=== PATIENT | female | born 1980 | race Caucasian/White ===

== ENCOUNTER 2016-09-10 05:49 | Emergency (ER) | payer MEDICAID, OTHER ==
[~2016-09-10] VITALS: Ht 149.9 cm; Wt 90.9 kg
[~2016-09-10 05:49] MED LIST: CIPR500T4 PO; METR500T PO; PANT40TA3 PO; TRAM50TA2 PO
[2016-09-10 05:52] VITALS: Ht 149.9 cm; Wt 90.9 kg
--- NOTE | 2016-09-10 06:28 | ERD ---
ER Documentation Chief Complaint Date/Time DATE: 09/10/16 TIME: 06:26 Chief Complaint woke up w/sharp mid ap this morning. +n/v and sweats took pepcid (IRVIN ROSENBERG) HPI 36-year-old female presented emergency department for mid abdominal pain that woke her up this morning at around 3 AM. Pain was described as sharp nonradiating. Reports nonbilious and none bloody vomiting 1 today. Stated that she took Pepcid prior to arrival here in the emergency department. Denies headache, loss of consciousness, dizziness, blurry vision, changes in vision, photophobia, facial pain, ear pain, throat pain, difficulty swallowing, neck pain, shoulder pain, chest pain, cough, hemoptysis, back pain, loss of appetite, hematochezia, diarrhea, constipation, urinary symptoms, , the possibility of being , bladder and bowel incontinences, extremity weakness, extremity tenderness, numbness or tingling sensation, difficulty walking, recent travel, recent exposure to illness, recent antibiotic use in the last 3 months, fever, chills. LMP: August 19, 2016. A0. Past medical history of gallstones. Surgical history of cholecystectomy. Family history: Denies family history of cardiac before the age of 50, stroke. Medications: Denies prescription medication. Social: Works as a salesperson. Denies smoking, use of alcohol, use of illegal drugs. (IRVIN ROSENBERG) ROS All systems reviewed and are negative except as per history of present illness. (IRVIN ROSENBERG) Medications Home Meds Active Scripts Ondansetron (Ondansetron Odt) 4 Mg Tab.rapdis, 4 MG PO Q8 Y for NAUSEA AND/OR VOMITING, #20 TAB Prov:IRVIN ROSENBERG 09/10/16 Famotidine* (Pepcid*) 20 Mg Tablet, 40 MG PO DAILY for 30 Days, #30 TAB Prov:IRVIN ROSENBERG 09/10/16 Pantoprazole* (Protonix*) 40 Mg Tablet.dr, 40 MG PO DAILY for 30 Days, TAB Prov:CHRISTIE LAU MD 10/19/14 Tramadol HCl (Tramadol HCl) 50 Mg Tab, 50 MG PO Q6H Y for PAIN for 10 Days, TAB Prov:CHRISTIE LAU MD 10/19/14 Metronidazole* (Flagyl*) 500 Mg Tablet, 500 MG PO Q8 for 10 Days, TAB Prov:CHRISTIE LAU MD 10/19/14 Ciprofloxacin Hcl* (Ciprofloxacin Hcl*) 500 Mg Tablet, 500 MG PO BID for 10 Days , TAB Prov:CHRISTIE LAU MD 10/19/14 Allergies Allergies: Coded Allergies: piperacillin (Verified Allergy, Intermediate, URTICARIA, 10/16/14) tazobactam (Verified Allergy, Intermediate, URTICARIA, 10/16/14) PMhx/Soc History of Surgery: Yes (ERCP WITH SENT 2012, GALLBLADER REMOVAL 06/2012, ERCP , ) Anesthesia Reaction: No Hx Neurological Disorder: No Hx Respiratory Disorders: No Hx Cardiac Disorders: Yes (IRREGULAR) Hx Psychiatric Problems: No Hx Miscellaneous Medical Probl: No Hx Alcohol Use: No Hx Substance Use: No Hx Tobacco Use: No Smoking Status: Never smoker (IRVIN ROSENBERG) Physical Exam Vitals Vital Signs Date Time Temp Pulse Resp B/P Pulse Ox O2 Delivery O2 Flow Rate FiO2 09/10/16 05:52 97.8 88 18 143/83 98 (KAIDEN MORGAN MD) Physical Exam CONSTITUTIONAL: Well-appearing; well-nourished; in no apparent distress. HEAD: Normocephalic; atraumatic. EYES: Conjunctiva clear, sclera non-icteric, EOM intact. PERRL Ears: Hearing intact. EACs clear, TMs non-bulging, non-inflamed, translucent & mobile, ossicles normal appearance, No obstructions, no erythema, no discharges Nose: No obstructions. No polyps. No external lesions. Mucosa non-inflamed. No external lesions, septum and turbinates normal. No rhinorrhea. No discharges. Frontal sinus is non-tender to palpation. Maxillary sinus is non-tender to palpation. MOUTH: Moist mucous membranes, no lesion, no obstructions, no vesicles, no thrush, patent airway Throat: Uvula in midline. Right tonsil is +1 with no erythema, no exudate. Left tonsil is +1 with no erythema, no exudate. Tolerating secretions well. Good gag reflex. Patent airway. Neck: Supple, without lesions, bruits, or adenopathy. No mass. Thyroid non- enlarged and non-tender to palpation. CHEST: Symmetrical chest. Respirations even and not labored. No retractions noted. CARDIOVASCULAR: Normal S1, S2. RRR. No murmurs, gallops. RESPIRATORY: Normal chest excursion with respiration; breath sounds clear and equal bilaterally; no wheezes, rhonchi, or rales. Breathing even and unlabored. Speaking in clear, full, and complete sentences w/ ease. ABDOMEN: Normal bowel sounds normal. Soft, round, non-distended, non-guarding, no rebound, no organomegaly, no masses, no pulsating abdominal mass. Has diffuse abdominal tenderness on light and deep palpation. No hernia. No peritoneal signs. : No CVA tenderness. BACK: Symmetrical shoulder. Spine is midline without deformity, tenderness. No evidence of trauma or deformity. PELVIS: Stable pelvis. No evidence of trauma or deformity. MUSCULOSKELETAL: Normal gait and station. No misalignment, asymmetry, crepitation, defects, tenderness, masses, effusions, decreased range of motion, instability, atrophy or abnormal strength or tone in the head, neck, spine, ribs , pelvis or extremities. No calf tenderness. NEUROVASCULAR: Distal pulses are present. Pedal pulse are present, equal, and normal. Capillary refills are < 2 seconds. NEUROLOGIC: Alert and oriented x4. Speaks full and clear sentences. Cranial Nerves II-XII normal. Sensation to pain, touch, and proprioception normal. Grossly unremarkable. No neurologic deficits. Romberg test is negative. PSYCHOLOGICAL: The patients mood and manner are appropriate. No hallucinations , delusions. Not SI. Not HI. Has the capacity to decide for self SKIN: Normal for age and ethnicity; warm; dry; good turgor; no apparent lesions or exudates. No rashes, hives, discoloration. Intact. (SHAKIRA,KLAR F) Result Diagram: 09/10/16 0646 09/10/16 0646 Results 24 hrs Laboratory Tests Test 09/10/16 06:40 09/10/16 06:46 Urine Color YELLOW Urine Clarity SLIGHTLY CLOUDY Urine pH 7.0 Urine Specific [place] 1.023 Urine Ketones NEGATIVEmg/dL Urine Nitrite NEGATIVEmg/dL Urine Bilirubin NEGATIVEmg/dL Urine Urobilinogen 1+mg/dL Urine Leukocyte Esterase TRACELeu/ul Urine Microscopic RBC 1/HPF Urine Microscopic WBC 3/HPF Urine Squamous Epithelial Cells FEW/HPF Urine Bacteria FEW/HPF Urine Hemoglobin NEGATIVEmg/dL Urine Glucose NEGATIVEmg/dL Urine Total Protein NEGATIVEmg/dl White Blood Count 10.910^3/ul Red Blood Count 5.5010^6/ul Hemoglobin 14.2g/dl Hematocrit 44.5% Mean Corpuscular Volume 80.9fl Mean Corpuscular Hemoglobin 25.8pg Mean Corpuscular Hemoglobin Concent 31.9g/dl Red Cell Distribution Width 14.8% Platelet Count 51381^3/UL Mean Platelet Volume 12.2fl Neutrophils % 69.1% Lymphocytes % 24.3% Monocytes % 5.2% Eosinophils % 0.7% Basophils % 0.3% Nucleated Red Blood Cells % 0.0/100WBC Neutrophils # 7.610^3/ul Lymphocytes # 2.710^3/ul Monocytes # 0.610^3/ul Eosinophils # 0.110^3/ul Basophils # 0.010^3/ul Nucleated Red Blood Cells # 0.010^3/ul Sodium Level 140mmol/L Potassium Level 3.5mmol/L Chloride Level 101mmol/L Carbon Dioxide Level 25mmol/L Anion Gap 18 Blood Urea Nitrogen 11mg/dl Creatinine 0.66mg/dl Glucose Level 137mg/dl Calcium Level 8.7mg/dl Total Bilirubin 0.4mg/dl Direct Bilirubin 0.00mg/dl Indirect Bilirubin 0.4mg/dl Aspartate Amino Transf (AST/SGOT) 34IU/L Alanine Aminotransferase (ALT/SGPT) 61IU/L Alkaline Phosphatase 97IU/L Total Protein 7.9g/dl Albumin 4.8g/dl Globulin 3.10g/dl Albumin/Globulin Ratio 1.54 Amylase Level 50U/L Lipase 54U/L Serum HCG, Qualitative NEGATIVE Current Medications Medications (Trade) Dose Ordered Sig/Barbara Route PRN Reason Start Time Stop Time Status Last Admin Dose Admin Ondansetron HCl (Zofran Inj) 4 mg STK-MED ONCE .ROUTE 09/10/16 06:50 09/10/16 06:51 DC Ondansetron HCl (Zofran Inj) 4 mg ONCE STAT IV 09/10/16 06:52 09/10/16 06:54 DC 09/10/16 06:56 Morphine Sulfate 4 mg 4 mg ONCE STAT IV 09/10/16 06:52 09/10/16 06:54 DC 09/10/16 06:56 Sodium Chloride (NS) 1,000 ml @ 1,000 mls/hr Q1H ONCE IV 09/10/16 07:00 09/10/16 07:59 DC 09/10/16 07:07 Hydromorphone HCl (Dilaudid) 1 mg ONCE STAT IV 09/10/16 07:25 09/10/16 07:26 DC 09/10/16 07:30 Diphenhydramine HCl (Benadryl) 25 mg ONCE ONCE IV 09/10/16 07:30 09/10/16 07:31 DC 09/10/16 07:30 Miscellaneous Medication (Gi Cocktail (2)) 40 ml ONCE ONCE PO 09/10/16 09:30 09/10/16 09:31 DC 09/10/16 09:20 (KAIDEN MORGAN MD) Procedures/MDM Examination: Please see physical examination. Disease process, medical treatment was explained to the patient and family member. They verbalized understanding and agreed with the diagnostic tests, medical treatment, and follow-up care. Radiology: CT of the abdomen and pelvis with IV contrast Impression: Less prominence of intrahepatic bile ducts on the prior study. Small amount of biliary air. Mild bile duct enhancement. No definite choledocholithiasis. Mild hepatomegaly and hepatic steatosis as seen previously. Small hiatal hernia. Possibly slightly enlarged azygoesophageal recess lymph node. Blood works: Reviewed. POC urine : Negative. Urinalysis: Reviewed. Case was discussed with attending physician, Dr. Kaiden Morgan who agreed with my medical decision making. He also suggested to order GI cocktail. Treatment: IV insertion. Normal saline 1 L 1 bolus. Morphine IV. Zofran IV. Dilaudid IV. Benadryl IV. GI cocktail. Re-evaluation: Denies headache, dizziness, blurry vision, neck pain, shoulder pain, chest pain, back pain, abdominal pain, nausea, vomiting. No episode of emesis in the emergency department. Alert and oriented 4. Speaks full and clear sentences. Respirations even and unlabored. Lung sounds clear to auscultation. Active bowel sounds. There is no right upper/right lower/ epigastric/left upper/left lower abdominal tenderness and light and deep palpation. Negative on Rovsings sign. Negative Tiffany sign. Able to jump 5 times without developing right-sided abdominal pain. No peritoneal signs. Alert and oriented 4. Speaks full and clear sentences. Respirations even and unlabored. Lung sounds clear to auscultation. Ambulatory with steady gait. No neurovascular deficits. No neurological deficits. Consultation: None. Differential diagnosis: Appendicitis versus pancreatitis versus nephrolithiasis versus diverticulitis versus diverticulosis versus abdominal pain Medical decision makin-year-old female presented emergency department for mid abdominal pain that woke her up this morning at around 3 AM. Pain was described as sharp nonradiating. Reports nonbilious and none bloody vomiting 1 today. Stated that she took Pepcid prior to arrival here in the emergency department. Patient's complaint, patient's history about her complaint, my physical findings, diagnostic test results, my reevaluation are consistent my final diagnosis of abdominal pain. Hemodynamically stable on discharge. Medications prescribed are the following: Pepcid. Zofran. Patient and family member are made aware of the side effects and adverse reactions of the medications prescribed. Instructed on when to seek emergent and medical attention in case allergic/anaphylactic reactions or severe side effects and or adverse reactions to medications. Patient and family member verbalized understanding. Patient instructed Instructed to follow-up with his PCP in 24-48 hours. Patient was instructed to come back in the emergency department if her symptoms get worse in the next 8- 12 hours. She verbalized understanding. Instructed to Call 911 for chest pain, shortness of breath. Advised to come back here in ED as soon as possible for severity of symptoms which includes but not limited to: any new symptoms; shortness of breath/difficulty of breathing; cardiovascular changes; severe gastrointestinal symptoms; signs and symptoms of bleeding and or infection; signs of compartment syndrome/neurovascular changes; neurological changes/deficits. Patient and family member verbalized understanding. Upon discharge, patient is alert and oriented x 4, speaks full and clear sentences, denies pain, has no neurological deficits, has no neurovascular deficits, difficulty of breathing. Breathing even and unlabored. Lung sounds are clear to auscultation. Not in distress. Appears comfortable. Ambulatory with steady gait. Appears satisfied with care provided here in ED. (IRVIN ROSENBERG) ED physician addendum: I examined this patient and reviewed her vital signs, imaging, and lab results. The patient reports acute epigastric pain. She has benign labs and UA. CT scan shows no significant intra-abdominal pathology. On exam she has mild epigastric tenderness. I believe that she can be safely discharged home with prescription for Pepcid and strict return precautions. There are no features that are concerning for a cardiac etiology of her symptoms. (KAIDEN MORGAN MD) Departure Diagnosis: Primary Impression: Abdominal pain Condition: Stable Additional Instructions: Instructed to follow-up with his PCP in 24-48 hours. Patient was instructed to come back in the emergency department if her symptoms get worse in the next 8- 12 hours. She verbalized understanding. Instructed to Call 911 for chest pain, shortness of breath. Advised to come back here in ED as soon as possible for severity of symptoms which includes but not limited to: any new symptoms; shortness of breath/difficulty of breathing; cardiovascular changes; severe gastrointestinal symptoms; signs and symptoms of bleeding and or infection; signs of compartment syndrome/neurovascular changes; neurological changes/deficits. Patient and family member verbalized understanding. IRVIN ROSENBERG Sep 10, 2016 06:28 KAIDEN MORGAN MD Sep 10, 2016 13:32
[2016-09-10] MEDS ORDERED: ONDANSETRON 4 MG INJ ONE (06:50)
[2016-09-10] MEDS ORDERED: morphine 4 MG/ML VIAL IV STA (06:52)
[2016-09-10] MEDS ORDERED: ONDANSETRON 4 MG INJ IV STA (06:52)
[2016-09-10 06:59] LABS: ADD SCAN DIFF NO
[2016-09-10] MEDS ORDERED: SOD CHLORIDE 0.9% 1,000 ML IV ONE (07:00)
[2016-09-10 07:03] LABS: BASOPHILS % 0.3 % (0.0-2.0); EOSINOPHILS # 0.1 10^3/ul (0.0-0.5); EOSINOPHILS % 0.7 % (0.0-7.0); HEMATOCRIT 44.5 % (37.0-47.0); HEMOGLOBIN 14.2 g/dl (12.0-16.0); LYMPHOCYTES # 2.7 10^3/ul (0.8-2.9); LYMPHOCYTES % 24.3 % (15.0-51.0); MEAN CORPUSCULAR HEMOGLOBIN 25.8 pg (29.0-33.0); MEAN CORPUSCULAR HGB CONC 31.9 g/dl (32.0-37.0); MEAN CORPUSCULAR VOLUME 80.9 fl (82.0-101.0); MEAN PLATELET VOLUME 12.2 fl (7.4-10.4); MONOCYTE # 0.6 10^3/ul (0.3-0.9); MONOCYTES % 5.2 % (0.0-11.0); NEUTROPHIL # 7.6 10^3/ul (1.6-7.5); NEUTROPHILS % 69.1 % (39.0-77.0); PLATELET COUNT 300 10^3/UL (140-415); RED CELL DISTRIBUTION WIDTH 14.8 % (11.5-14.5); WHITE BLOOD COUNT 10.9 10^3/ul (4.8-10.8)
[2016-09-10 07:06] LABS: ADD UMIC YES; UR ASCORBIC ACID NEGATIVE (NEGATIVE); UR BACTERIA FEW /HPF (NONE SEEN); UR BILIRUBIN (Dip) NEGATIVE (NEGATIVE); UR BLOOD (Dip) NEGATIVE (NEGATIVE); UR CLARITY SLIGHTLY CLOUDY (CLEAR); UR COLOR YELLOW (YELLOW); UR GLUCOSE (Dip) NEGATIVE (NEGATIVE); UR KETONES (Dip) NEGATIVE (NEGATIVE); UR LEUKOCYTE ESTERASE (Dip) TRACE Leu/ul (NEGATIVE); UR NITRITE (Dip) NEGATIVE (NEGATIVE); UR RBC 1 /HPF (0-5); UR SPECIFIC GRAVITY (Dip) 1.023 (1.003-1.030); UR SQUAMOUS EPITHELIAL CELL FEW /HPF (FEW); UR TOTAL PROTEIN (Dip) NEGATIVE (NEGATIVE); UR UROBILINOGEN (Dip) 1+ mg/dL (NEGATIVE)
[2016-09-10 07:21] LABS: ALBUMIN 4.8 g/dl (3.3-4.9); ALBUMIN/GLOBULIN RATIO 1.54; BILIRUBIN,INDIRECT 0.4 mg/dl (0-1.1); BILIRUBIN,TOTAL 0.4 mg/dl (0.2-1.3); CALCIUM 8.7 mg/dl (8.4-10.2); CREATININE 0.66 mg/dl (0.44-1.00); POTASSIUM 3.5 mmol/L (3.5-5.1); TOTAL PROTEIN 7.9 g/dl (6.1-8.1)
[2016-09-10] MEDS ORDERED: HYDROmorphONE 1 MG/ML SYG IV STA (07:25)
[2016-09-10] MEDS ORDERED: DIPHENHYDRAMINE 50 MG INJ IV ONE (07:30)
--- NOTE | 2016-09-10 08:53 | RADRPT ---
PROCEDURE: CT Abdomen and pelvis with contrast CLINICAL INDICATION: Abdominal pain TECHNIQUE: Spiral CT images through the abdomen and pelvis without administration of oral and duri ng administration of 90 cc of Omnipaque 350 contrast material. Multiplanar reconstructions. The to melanie exam CTDI equals 21.16 mGy and the total exam DLP equals 1194.29 mGy-cm. One or more of the foll owing dose reduction techniques were used: automated exposure control, adjustment of the mA and/or k V according to patient size, or use of iterative reconstruction technique. COMPARISON: 10/16/2014 FINDINGS: Slight atelectasis of the lung bases is seen. No pleural effusion is seen. . . Probable 1.3 cm azy goesophageal recess lymph node, not seen previously. Small hiatal hernia. Clips are again seen from prior cholecystectomy. Intrahepatic bile ducts are less prominent than pr ior although some biliary air is seen. There is mild biliary duct enhancement. The common bile tang t does not appear dilated. No definite choledocholithiasis. No focal liver lesions are seen. The l iver is again noted to be enlarged at 20 cm and slightly low in attenuation suggesting hepatic steat osis. The spleen, adrenals, kidneys, and pancreas are unremarkable in appearance. Tiny fat-contain ing umbilical hernia. . Normal appendix. Small probable bilateral ovarian follicles. Unremarkable uterus and urinary bladder. No adenopathy or ascites is seen. There is no evidence for bowel obstr uction, free air, or abscess. No bony abnormality is seen. IMPRESSION: Less prominence of intrahepatic bile ducts than on the prior study. Small amount of biliary air. M ild bile duct enhancement. No definite choledocholithiasis. Mild hepatomegaly and hepatic steatosi s as seen previously. Small hiatal hernia. Possible slightly enlarged azygoesophageal recess lymph node. RPTAT: [facility] Physician Louise Date Time Electronically viewed and signed by Physician Louise on 09/10/2016 08:53 LE/
[2016-09-10] MEDS ORDERED: LIDOCAINE/MYLANTA 40 ML BTL PO ONE (09:30)
[2016-09-10] MEDS ORDERED: FAMO-96 PO (10:04)
[2016-09-10] MEDS ORDERED: ONDA4TAB14 PO (10:05)
== END 2016-09-10 10:20 | disposition home or self-care (01) ==
LOC: FTE 05:49
DX: R10.84 Generalized abdominal pain (principal); R11.2 Nausea with vomiting, unspecified
CPT/HCPCS: 36415; 74177; 80053; 81001; 82150; 83690; 84703; 85025; 87086; 96374; 96375; J1170; J1200; J2270; J2405; J7030; Z7502; Z7610